=== PATIENT | male | born 1935 | race Caucasian/White ===

== ENCOUNTER 2018-02-22 13:35 | Outpatient (CLI) | payer MEDICARE, OTHER ==
--- NOTE | 2018-02-22 15:00 | RAD ---
RIGHT SHOULDER THREE VIEWS: History: Right shoulder pain. FINDINGS: Degenerative changes in the acromioclavicular and glenohumeral joints. No fracture, dislocation, or b yfn destruction is identified. Tracheostomy tube is present. There are post op changes in the neck. IMPRESSION: Right shoulder osteoarthritis. POS: [facility]
--- NOTE | 2018-02-22 15:46 | MRI ---
MRI LUMBAR SPINE: Date: 02-22-18 Provided Clinical History: Back pain. FINDINGS: Correlation is made with radiographs performed 12-13-17. Five non-rib bearing lumbar type vertebral bodies are demonstrated on that study. Lumbar alignment ap pears normal. Vertebral body heights appear preserved. No focal concerning regional marrow signal abn ormality is evident. The conus medullaris is normal in signal and terminates at an appropriate level. The visualized extraspinal soft tissues appear unremarkable other than partially visualized changes of aortic aneurysm status post stent graft repair. L1-2: There is prominent disc space height loss and endplate degenerative change. There is a broad ba sed disc bulge and bilateral facet arthritis. There is mild bilateral foraminal narrowing and mild ce ntral canal stenosis. L2-3: There is a broad based disc bulge which is essentric in the left foraminal and lateral regions producing displacement of the exiting left L2 nerve root. There is mild/moderate central canal stenos is. There is mild right foraminal narrowing. L3-4: There is a broad based disc bulge and bilateral facet arthritis. Disc bulge is essentric in the left foramen and far lateral regions and displaces the exiting left L3 nerve root. There is mild danuta tral canal stenosis. There is mild right foraminal narrowing. L4-5: There is a broad based disc bulge and bilateral facet arthritis. There is moderate/severe right foraminal narrowing. There is mild left foraminal narrowing. There is mild central canal stenosis. L5-S1: There is a broad based disc bulge and bilateral facet arthritis. There is moderate/severe righ t and mild/moderate left foraminal narrowing. 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 POS: [facility]
== END 2018-02-22 13:36 | disposition home or self-care (01) ==
LOC: SCSMRI 13:35
PROVIDERS: ATTEND Physical Medicine & Rehabilitation
DX: M25.511 Pain in right shoulder (principal); M19.011 Primary osteoarthritis, right shoulder; M54.5 Low back pain; M48.061 Spinal stenosis, lumbar region without neurogenic claudication; M99.83 Other biomechanical lesions of lumbar region; M99.84 Other biomechanical lesions of sacral region; M47.27 Other spondylosis with radiculopathy, lumbosacral region; M47.26 Other spondylosis with radiculopathy, lumbar region; M51.36 Other intervertebral disc degeneration, lumbar region
CPT/HCPCS: 72148